=== PATIENT | female | born 1985 | race Caucasian/White ===

== ENCOUNTER 2019-09-17 05:30 | Day surgery (SDC) | payer OTHER ==
[~2019-09-17] VITALS: Ht 154.9 cm; Wt 78.4 kg
[~2019-09-17 05:30] MED LIST: ASCO10004 PO; CETI-158 PO; MELA5TAB14 PO
[2019-09-17] MEDS ORDERED: LACTATED RINGERS 1,000 ML IV SCH (06:17)
[2019-09-17] MEDS ORDERED: BUPIVACAINE/PF 0.25% ONE (06:17)
[2019-09-17 06:18] LABS: HCG UR SG 1.022 (1.003-1.030)
[2019-09-17 06:19] VITALS: BP 126/84
[2019-09-17] MEDS ORDERED: CHLORHEXIDINE 15 ML UDC MM ONE (06:30)
[2019-09-17] MEDS ORDERED: MIDAZOLAM 1 MG/ML, 2ML ONE (06:38)
[2019-09-17] MEDS ORDERED: FENTANYL PF 250 MCG/5ML ONE (06:38)
[2019-09-17] MEDS ORDERED: DEXAMETHASONE 4 MG/ML, 1ML ONE (06:58)
[2019-09-17] MEDS ORDERED: PROPOFOL 10 MG/ML, 20ML ONE (06:58)
[2019-09-17] MEDS ORDERED: ROCURONIUM 10 MG/ML,10ML ONE (06:58)
[2019-09-17] MEDS ORDERED: SUCCINYLCHOLINE 20 MG/ML, 10ML ONE (06:58)
[2019-09-17] MEDS ORDERED: CEFAZOLIN 1,000 MG ONE (06:58)
[2019-09-17] MEDS ORDERED: ONDANSETRON 2MG/ML, 2ML ONE (06:58)
[2019-09-17] MEDS ORDERED: MEPERIDINE/PF 25MG/0.5ML IVPush PRN (07:30)
[2019-09-17] MEDS ORDERED: hydrALAzine 20 MG/ML, 1ML IV PRN (07:30)
[2019-09-17] MEDS ORDERED: OXYcodone 5 MG/5 ML ORAL.SOL UDC PO PRN (07:30)
[2019-09-17] MEDS ORDERED: LABETALOL 5MG/ML, 20ML IV PRN (07:30)
[2019-09-17] MEDS ORDERED: METOCLOPRAMIDE 5 MG/ML, 2ML IV PRN (07:30)
[2019-09-17] MEDS ORDERED: KETOROLAC 30 MG/1 ML IV PRN (07:30)
[2019-09-17] MEDS ORDERED: HYDROmorphone 1 MG/ML, 1ML INJ IV PRN (07:30)
[2019-09-17] MEDS ORDERED: ALBUTEROL SULFATE 2.5 MG/3 ML NPPB PRN (07:30)
[2019-09-17] MEDS ORDERED: ONDANSETRON 2MG/ML, 2ML IVPush PRN (07:30)
[2019-09-17] MEDS ORDERED: PROMETHAZINE 25 MG/ML, 1ML IV PRN (07:30)
[2019-09-17] MEDS ORDERED: DIAZEPAM 5 MG/ML, 2ML IV PRN ×2 (07:30)
[2019-09-17] MEDS ORDERED: ACETAMINOPHEN 650 MG/20.3 ML UDC ONE (07:46)
[2019-09-17] MEDS ORDERED: FENTANYL PF 100 MCG/2ML ONE (07:47)
[2019-09-17] MEDS: FENTANYL PF 100 MCG/2ML IV PRN ×2 (07:52→07:59)
[2019-09-17] MEDS ORDERED: ACETAMINOPHEN 650 MG/20.3 ML UDC PO PRN (08:00)
== END 2019-09-17 09:18 | disposition home or self-care (01) ==
LOC: OUT 05:30
PROVIDERS: ATTEND Surgery
DX: R19.03 Right lower quadrant abdominal swelling, mass and lump (principal); Z11.59 Encounter for screening for other viral diseases; F17.210 Nicotine dependence, cigarettes, uncomplicated; Z98.890 Other specified postprocedural states; Z88.8 Allergy status to other drugs, medicaments and biological substances; Z79.899 Other long term (current) drug therapy; Z72.89 Other problems related to lifestyle; Z82.49 Family history of ischemic heart disease and other diseases of the circulatory system
CPT/HCPCS: 22903; 81025; 87635; 88305; J0330; J0690; J1100; J1885; J2250; J2405; J2704; J3010; J3490; J7120

== ENCOUNTER 2020-08-03 13:53 | Outpatient (CLI) | payer OTHER ==
[~2020-08-03 13:53] MED LIST changes: +ASCO100018 PO; -ASCO10004 PO
[2020-08-03] MEDS ORDERED: CYCL5TAB PO (14:15)
[2020-08-03] MEDS ORDERED: FIBER PO (14:15)
[2020-08-03] MEDS ORDERED: FIORINAL PO (14:15)
== END 2020-08-03 23:59 | disposition home or self-care (01) ==
LOC: STAR 13:53
PROVIDERS: ATTEND Specialist
DX: Z20.822 Contact with and (suspected) exposure to COVID-19 (principal); N94.5 Secondary dysmenorrhea; N80.6 Endometriosis in cutaneous scar; N92.0 Excessive and frequent menstruation with regular cycle; R10.2 Pelvic and perineal pain
CPT/HCPCS: U0003; U0005

== ENCOUNTER 2020-08-08 07:50 | Day surgery (SDC) | payer OTHER ==
[~2020-08-08] VITALS: Ht 154.9 cm; Wt 74.8 kg
[~2020-08-08 07:50] MED LIST changes: +ACETAMINOPHEN 325 MG TABLET PO PRN; +CYCL5TAB PO; +DIAZEPAM 5 MG/ML, 2ML IVPush PRN; +EPHEDRINE 50 MG/ML, 1ML IVPush PRN; +FENTANYL PF 100 MCG/2ML IV PRN; +FIBER PO; +FIORINAL PO; +HALOPERIDOL 5 MG/ML IV PRN; +HYDROmorphone 1 MG/ML, 1ML INJ IVPush PRN; +KETOROLAC 30 MG/1 ML IVPush PRN; +LABETALOL 5MG/ML, 20ML IV PRN; +MEPERIDINE/PF 25MG/0.5ML IVPush PRN; +METOCLOPRAMIDE 5 MG/ML, 2ML IVPush PRN; +METOPROLOL 1 MG/ML, 5ML IV PRN; +ONDANSETRON 2MG/ML, 2ML IVPush PRN; +OXYcodone 5 MG/5 ML ORAL.SOL UDC PO PRN; +PROMETHAZINE 25 MG/ML, 1ML IVPush PRN; +hydrALAzine 20 MG/ML, 1ML IV PRN
[2020-08-08 08:23] VITALS: BP 130/84
[2020-08-08 08:28] LABS: HCG UR SG 1.023 (1.003-1.030)
[2020-08-08] MEDS ORDERED: CHLORHEXIDINE 15 ML UDC PO ONE (08:30)
[2020-08-08] MEDS ORDERED: LACTATED RINGERS 1,000 ML IV SCH (09:00)
[2020-08-08] MEDS ORDERED: LIDOCAINE-MPF 1%, 2ML INFIL ONE (09:00)
[2020-08-08] MEDS ORDERED: BUPIVACAINE/PF 0.25% ONE (09:01)
[2020-08-08] MEDS ORDERED: SCOPOLAMINE 1MG PATCH TD ONE (09:09)
[2020-08-08] MEDS ORDERED: HYDROmorphone 1 MG/ML, 1ML INJ ONE (09:19)
[2020-08-08] MEDS ORDERED: FENTANYL PF 100 MCG/2ML ONE (09:19)
[2020-08-08] MEDS ORDERED: MIDAZOLAM 1 MG/ML, 2ML ONE (09:19)
[2020-08-08] MEDS ORDERED: SCOPOLAMINE 1MG PATCH TD SCH (09:30)
[2020-08-08] MEDS ORDERED: ONDANSETRON 2MG/ML, 2ML ONE (09:30)
[2020-08-08] MEDS ORDERED: NEOSTIGMINE 1 MG/ML, 10ML ONE (09:30)
[2020-08-08] MEDS ORDERED: PROPOFOL 10 MG/ML, 20ML ONE (09:30)
[2020-08-08] MEDS ORDERED: DEXAMETHASONE 4 MG/ML, 1ML ONE (09:30)
[2020-08-08] MEDS ORDERED: GLYCOPYRROLATE 0.2MG/1ML, 5ML ONE (09:30)
[2020-08-08] MEDS ORDERED: ROCURONIUM 10 MG/ML,10ML ONE (09:30)
[2020-08-08] MEDS ORDERED: CEFOTETAN 2 GM ONE (09:30)
[2020-08-08] MEDS ORDERED: KETOROLAC 30 MG/1 ML ONE (12:01)
== END 2020-08-08 14:40 | disposition home or self-care (01) ==
LOC: OUT 07:50
PROVIDERS: ATTEND Specialist
DX: N94.6 Dysmenorrhea, unspecified (principal); N80.0 Endometriosis of uterus; N80.3 Endometriosis of pelvic peritoneum; D25.9 Leiomyoma of uterus, unspecified; N92.0 Excessive and frequent menstruation with regular cycle; N73.6 Female pelvic peritoneal adhesions (postinfective); I10 Essential (primary) hypertension; G43.909 Migraine, unspecified, not intractable, without status migrainosus; F17.210 Nicotine dependence, cigarettes, uncomplicated; Z79.899 Other long term (current) drug therapy; Z88.5 Allergy status to narcotic agent; Z88.8 Allergy status to other drugs, medicaments and biological substances
CPT/HCPCS: 58571; 81025; 88305; 88307; J1100; J1170; J1885; J2250; J2405; J2704; J2710; J3010; J7120; S2900